=== PATIENT | female | born 1945 | race Two or more races ===

== ENCOUNTER 2022-02-24 17:34 | Emergency (ER) | payer OTHER ==
[~2022-02-24] VITALS: Ht 152.4 cm; Wt 54.4 kg
[~2022-02-24 17:34] MED LIST: AMLODIPINE BESYL5 MG
[2022-02-24] MEDS ORDERED: NORVASC5 MG (17:36)
== END 2022-02-24 19:47 | disposition home or self-care (01) ==
LOC: ER
DX: S09.90XA Unspecified injury of head, initial encounter (principal); S50.319A Abrasion of unspecified elbow, initial encounter; W18.30XA Fall on same level, unspecified, initial encounter; Y93.9 Activity, unspecified; Y92.9 Unspecified place or not applicable; Y99.9 Unspecified external cause status